=== PATIENT | male | born 1975 | race African-American/Black ===

== ENCOUNTER 2021-12-05 08:39 | Inpatient (IN) | payer SELFPAY ==
[~2021-12-05] VITALS: Ht 185.4 cm; Wt 109.8 kg
[2021-12-05 09:13] LABS: BASOPHILS % 0.7 % (0.0-2.0); MEAN CORPUSCULAR HEMOGLOBIN 28.6 pg (28.0-32.0); MEAN CORPUSCULAR VOLUME 88.1 fL (80.0-94.0); MEAN PLATELET VOLUME 8.1 fl (7.4-10.4); MONOCYTES % 11.8 % (2.0-8.0); NEUTROPHILS % 60.5 % (40.0-76.0); PLATELET 303 x1000/uL (130-400); RED BLOOD CELL COUNT 4.54 mill/uL (4.7-6.1); RED CELL DISTRIBUTION WIDTH 14.1 % (11.6-14.6)
[2021-12-05 09:21] LABS: CHLORIDE 109 mEq/L (98-107)
[2021-12-05 09:28] LABS: ETHANOL BLOOD < 10 mg/dL
[2021-12-05] MEDS ORDERED: ACETAMINOPHEN 650MG SUPP PR PRN ×2 (13:15)
[2021-12-05] MEDS ORDERED: LORAZEPAM 0.5MG TABLET PO PRN (13:15)
[2021-12-05] MEDS ORDERED: MAGNESIUM/ALUMINUM HYDROXIDE/SIMETHICONE 30ML UDC PO PRN (13:15)
[2021-12-05] MEDS ORDERED: DOCUSATE SODIUM 100MG CAPSULE PO PRN (13:15)
[2021-12-05] MEDS ORDERED: IPRATROPIUM/ALBUTEROL 0.5-3(2.5)MG/3ML NEB HHN PRN (13:15)
[2021-12-05] MEDS ORDERED: ACETAMINOPHEN 325MG TABLET PO PRN ×2 (13:15)
[2021-12-05] MEDS ORDERED: ONDANSETRON HCL 4MG/2ML INJ IV PRN (13:15)
[2021-12-05] MEDS ORDERED: CLONIDINE 0.1MG TABLET PO PRN (13:15)
[2021-12-05] MEDS ORDERED: GUAIFENESIN 200MG/10ML SUGAR FREE UDC PO PRN (13:15)
[2021-12-05 15:39] LABS: HEPATITIS B SURFACE ANTIGEN NEGATIVE
[2021-12-05 16:08] LABS: CREATINE KINASE 2339 IU/L (39-308)
[2021-12-05 19:13] LABS: CLARITY URINE CLOUDY (CLEAR); COLOR URINE YELLOW (YELLOW); KETONES URINE NEGATIVE (NEGATIVE); LEUKOCYTE ESTERASE URINE NEGATIVE (NEGATIVE); NITRITE URINE NEGATIVE (NEGATIVE); OCCULT BLOOD URINE NEGATIVE (NEGATIVE); PH URINE 6.5 (4.5-8.0); PROTEIN URINE NEGATIVE (NEGATIVE); SPECIFIC GRAVITY URINE 1.021 (1.005-1.030); UROBILINOGEN URINE 0.2 E.U./dL (0.2-1.0)
[2021-12-05 20:09] LABS: *AMPHETAMINES SCREEN URINE PRESUMTIVE POSITIVE (NEGATIVE); *BARBITURATES SCREEN URINE NEGATIVE (NEGATIVE); *BENZODIAZEPINES SCREEN URINE NEGATIVE (NEGATIVE); *COCAINE SCREEN URINE NEGATIVE (NEGATIVE); CANNABINOID URINE SCREEN NEGATIVE (NEGATIVE); METHADONE URINE SCREEN NEGATIVE (NEGATIVE); OPIATES URINE SCREEN NEGATIVE (NEGATIVE); PHENCYCLIDINE URINE SCREEN NEGATIVE (NEGATIVE)
[2021-12-05 23:10] VITALS: BP 134/80
[2021-12-06] VITALS: BP 137/83
[2021-12-06] MEDS: LACTATED RINGERS 1,000 ML IV SCH ×3 (02:14→23:04)
[2021-12-06 04:00] VITALS: BP 135/80
[2021-12-06 05:32] LABS: BASOPHILS % 0.8 % (0.0-2.0); EOSINOPHILS % 6.1 % (0.0-5.0); HEMATOCRIT. 38.8 % (42.0-52.0); HEMOGLOBIN. 12.5 g/dL (14.0-18.0); LYMPHOCYTES % 37.5 % (20.0-50.0); MEAN CORPUSCULAR HEMOGLOBIN 28.4 pg (28.0-32.0); MEAN CORPUSCULAR VOLUME 88.1 fL (80.0-94.0); MEAN PLATELET VOLUME 8.7 fl (7.4-10.4); MONOCYTES % 13.3 % (2.0-8.0); NEUTROPHILS % 42.3 % (40.0-76.0); PLATELET 286 x1000/uL (130-400); RED BLOOD CELL COUNT 4.41 mill/uL (4.7-6.1); RED CELL DISTRIBUTION WIDTH 13.8 % (11.6-14.6)
[2021-12-06 05:52] LABS: CHLORIDE 107 mEq/L (98-107)
[2021-12-06 06:07] LABS: HDL CHOLESTEROL 54 mg/dL (40-59); LDL CHOLESTEROL 67 mg/dL (5-100)
[2021-12-06 12:00] VITALS: BP 127/77
[2021-12-06 15:54] LABS: PROTHROMBIN TIME 10.5 sec (9.6-11.0)
[2021-12-06 16:00] VITALS: BP 153/94
[2021-12-06 20:00] VITALS: BP 134/68
[2021-12-07] VITALS: BP 142/76
[2021-12-07] MEDS: LACTATED RINGERS 1,000 ML IV SCH (03:45)
[2021-12-07 05:30] VITALS: BP 135/65
[2021-12-07 08:00] VITALS: BP 148/99
[2021-12-07 09:21] LABS: BASOPHILS % 0.5 % (0.0-2.0); HEMATOCRIT. 42.5 % (42.0-52.0); HEMOGLOBIN. 13.5 g/dL (14.0-18.0); LYMPHOCYTES % 23.8 % (20.0-50.0); MEAN CORPUSCULAR HEMOGLOBIN 28.2 pg (28.0-32.0); MEAN PLATELET VOLUME 8.7 fl (7.4-10.4); MONOCYTES % 6.9 % (2.0-8.0); NEUTROPHILS % 67.8 % (40.0-76.0); PLATELET 354 x1000/uL (130-400); RED BLOOD CELL COUNT 4.77 mill/uL (4.7-6.1); RED CELL DISTRIBUTION WIDTH 13.9 % (11.6-14.6)
[2021-12-07 09:39] LABS: CHLORIDE 104 mEq/L (98-107)
[2021-12-08 07:09] LABS: HIV SCREEN 4G Non Reactive (Non Reactive)
== END 2021-12-07 16:20 | disposition left against medical advice (07) | DRG 52 ==
LOC: ER 08:39 → MICUSO 12:06 → EDBEDREQTM 12:11 → EDBEDREQ 12:11 → 8WST 21:50
PROVIDERS: ADMIT Specialist; ATTEND Specialist
DX: G92.8 Other toxic encephalopathy (principal); E78.2 Mixed hyperlipidemia; Z59.00 Homelessness unspecified; R74.8 Abnormal levels of other serum enzymes; Z53.29 Procedure and treatment not carried out because of patient's decision for other reasons
CPT/HCPCS: 36415; 71045; 80048; 80053; 80061; 80305; 80307; 80320; 80329; 81003; 82140; 82550; 83880; 84443; 84484; 85025; 86705; 86709; 86803; 87340; 87389; 93005; 99285; J7120; G0480

== ENCOUNTER 2021-12-12 11:25 | Emergency (ER) | payer SELFPAY ==
[~2021-12-12] VITALS: Ht 190.5 cm; Wt 94.2 kg
[2021-12-12 16:07] LABS: CHLORIDE 110 mEq/L (98-107)
[2021-12-12 16:12] LABS: BASOPHILS % 1.4 % (0.0-2.0); EOSINOPHILS % 5.5 % (0.0-5.0); HEMATOCRIT. 36.4 % (42.0-52.0); HEMOGLOBIN. 11.8 g/dL (14.0-18.0); LYMPHOCYTES % 28.7 % (20.0-50.0); MEAN CORPUSCULAR HEMOGLOBIN 28.5 pg (28.0-32.0); MEAN CORPUSCULAR VOLUME 88.2 fL (80.0-94.0); MEAN PLATELET VOLUME 8.8 fl (7.4-10.4); MONOCYTES % 11.5 % (2.0-8.0); NEUTROPHILS % 52.9 % (40.0-76.0); PLATELET 286 x1000/uL (130-400); RED BLOOD CELL COUNT 4.12 mill/uL (4.7-6.1); RED CELL DISTRIBUTION WIDTH 14.1 % (11.6-14.6)
[2021-12-12 16:53] LABS: *AMPHETAMINES SCREEN URINE PRESUMTIVE POSITIVE (NEGATIVE); *BARBITURATES SCREEN URINE NEGATIVE (NEGATIVE); *BENZODIAZEPINES SCREEN URINE NEGATIVE (NEGATIVE); *COCAINE SCREEN URINE NEGATIVE (NEGATIVE); CANNABINOID URINE SCREEN PRESUMTIVE POSITIVE (NEGATIVE); METHADONE URINE SCREEN NEGATIVE (NEGATIVE); OPIATES URINE SCREEN NEGATIVE (NEGATIVE); PHENCYCLIDINE URINE SCREEN NEGATIVE (NEGATIVE)
[2021-12-12 19:32] VITALS: BP 127/85
== END 2021-12-12 19:34 | disposition home or self-care (01) ==
LOC: ER 11:25
DX: R55 Syncope and collapse (principal); F15.10 Other stimulant abuse, uncomplicated; F12.10 Cannabis abuse, uncomplicated
CPT/HCPCS: 36415; 71045; 80053; 80305; 83880; 84484; 85025; 93005; 99285

== ENCOUNTER 2021-12-16 18:14 | Emergency (ER) | payer SELFPAY ==
[~2021-12-16] VITALS: Ht 188 cm; Wt 89.0 kg
[2021-12-16] MEDS ORDERED: KETOROLAC 60MG/2ML VIAL IM ONE (20:30)
[2021-12-16 20:40] LABS: BASOPHILS % 0.9 % (0.0-2.0); EOSINOPHILS % 2.7 % (0.0-5.0); HEMOGLOBIN. 12.1 g/dL (14.0-18.0); LYMPHOCYTES % 32.9 % (20.0-50.0); MEAN CORPUSCULAR HEMOGLOBIN 28.3 pg (28.0-32.0); MEAN CORPUSCULAR VOLUME 89.1 fL (80.0-94.0); MEAN PLATELET VOLUME 8.1 fl (7.4-10.4); MONOCYTES % 11.1 % (2.0-8.0); NEUTROPHILS % 52.4 % (40.0-76.0); PLATELET 284 x1000/uL (130-400); RED BLOOD CELL COUNT 4.26 mill/uL (4.7-6.1); RED CELL DISTRIBUTION WIDTH 14.2 % (11.6-14.6)
[2021-12-16 20:46] LABS: CHLORIDE 107 mEq/L (98-107)
[2021-12-16 22:25] LABS: CLARITY URINE TURBID (CLEAR); COLOR URINE YELLOW (YELLOW); KETONES URINE NEGATIVE (NEGATIVE); LEUKOCYTE ESTERASE URINE NEGATIVE (NEGATIVE); NITRITE URINE NEGATIVE (NEGATIVE); OCCULT BLOOD URINE NEGATIVE (NEGATIVE); PROTEIN URINE NEGATIVE (NEGATIVE)
[2021-12-16 22:44] LABS: *AMPHETAMINES SCREEN URINE PRESUMTIVE POSITIVE (NEGATIVE); *BARBITURATES SCREEN URINE NEGATIVE (NEGATIVE); *BENZODIAZEPINES SCREEN URINE NEGATIVE (NEGATIVE); *COCAINE SCREEN URINE NEGATIVE (NEGATIVE); CANNABINOID URINE SCREEN NEGATIVE (NEGATIVE); METHADONE URINE SCREEN NEGATIVE (NEGATIVE); OPIATES URINE SCREEN NEGATIVE (NEGATIVE); PHENCYCLIDINE URINE SCREEN NEGATIVE (NEGATIVE)
[2021-12-16] MEDS ORDERED: IBUP-2029 MT (22:48)
[2021-12-16 23:01] VITALS: BP 133/78
== END 2021-12-16 23:01 | disposition home or self-care (01) ==
LOC: ER 18:14
DX: R10.9 Unspecified abdominal pain (principal); E11.9 Type 2 diabetes mellitus without complications; I10 Essential (primary) hypertension; F17.210 Nicotine dependence, cigarettes, uncomplicated
CPT/HCPCS: 36415; 80053; 80305; 81003; 85025; 96372; 99283; J1885